=== PATIENT | male | born 1965 | race African-American/Black ===

== ENCOUNTER 2017-09-11 17:09 | Observation (INO) ==
[2017-09-11 17:39] LABS: Bilirubin,Urine Negative (Negative); Blood,Urine Negative (Negative); Clarity,Urine Clear (Clear); Color,Urine Yellow (Yellow); Glucose,Urine (UA) Normal (Normal); Ketones,Urine Negative (Negative); Leukocyte Esterase,Urine Negative (Negative); Nitrite,Urine Negative (Negative); Protein,Urine 30 mg/dL (Neg-Trace); Specific Gravity,Urine 1.025 (1.010-1.025); Urobilinogen,Urine Normal (Normal)
[2017-09-11 17:46] LABS: Mucus,Urine Moderate (Few); Squamous Epithelial Cell,Urine Few per lpf (None-Few); WBC,Urine 0-3 per hpf (0-3)
--- NOTE | 2017-09-11 17:50 | Emergency Department Note ---
Disposition Clinical Impression: Pancreatitis Qualifiers: Chronicity: acute Pancreatitis type: unspecified pancreatitis type Acute pancreatitis complication: no infection or necrosis Qualified Code(s): K85.90 - Acute pancreatitis without necrosis or infection, unspecified Abdominal pain Qualifiers: Abdominal location: right upper quadrant Qualified Code(s): R10.11 - Right upper quadrant pain Disposition: Admitted As Inpatient Condition: Fair Referrals: Alfonso Brush MD [Primary Care Provider] - Forms: ED Satisfaction Letter, Work/School Release Abdominal Pain HPI - General Chief Complaint: ED Abdominal Pain Stated Complaint: PAIN RT UPPER SIDE/BELLY Time Seen by Provider: 09/11/17 17:46 Source: patient Mode of arrival: private vehicle Limitations: no limitations Nursing Notes Reviewed: Yes Vital Signs Reviewed: Yes - History of Present Illness HPI Narrative: Patient was arrived here from the urgent care. She reported he has been having constant right upper quadrant abdominal pain is worst after eating. He had reported to them is having diarrhea at 8-10 stools per day. He was tender in the right upper artery with some voluntary guarding. They stated they did a plain x-ray that was unremarkable. They thought he needed further workup for possible biliary cause, pancreatitis or other acute abdominal process. They recommended he have lab of the CT performed. Patient arrives to the emergency department stating he has had right upper quadrant abdominal pain for about 4 days. This started on Sunday. Pain is sharp and radiates to his back. The pain is better if he lays on his left side. He has some relief from pain in the mornings but as soon as he starts to eat anything the pain gets worse through the day. States he has had decreased oral intake and has mainly been laying around the past couple days. He does report some diarrhea in the mornings which she states is brown or green. He denies any bloody or black stool. Denies nausea or vomiting nor any chest pain or shortness of breath. He has had some chills without fever. He denies any exposures, recent antibiotics or food borne illness concerns. He denies routine use of nonsteroidals or alcohol. Pt Subjective Complaint: abdominal pain Onset (ago): day(s) (4) Consistency: Worsening Location: RUQ Pain Severity: moderate Pain Scale: 6 Quality: stabbing, sharp Radiation: back Migration to: no migration Improves with: nothing Worsens with: eating Associated symptoms: Reports: diarrhea, chills, anorexia. Denies: nausea, vomiting, fever, constipation, dysuria, hematemesis, hematochezia, melena, hematuria, syncope Treatments prior to arrival: none - Related Data Home Medications Medication Instructions Recorded Confirmed No Known Home Drugs 09/11/17 09/11/17 Allergies Allergy/AdvReac Type Severity Reaction Status Date / Time No Known Allergies Allergy Verified 09/11/17 15:59 All systems ED: reviewed and negative except as stated. Abdominal Pain PMH - Past Medical History Medical history: Reports: hypertension, other Male Surgical History: Reports: cholecystectomy, orthopedic, other, vasectomy Psychiatric history: Reports: no psych history - Social History Smoking status: Current every day smoker Alcohol use: Reports: none Drug use: Reports: none Physical Exam - General Limitations: no limitations General appearance: alert, in no apparent distress (Patient landing on his left side.) - Head Head exam: atraumatic, normocephalic, normal inspection - Eye Eye exam: Present: normal appearance, PERRL, EOMI. Absent: scleral icterus, conjunctival injection - ENT ENT exam: normal exam, normal oropharynx, mucous membranes moist - Neck Neck exam: Present: normal inspection, full ROM, trachea midline - Chest Chest inspection: Present: normal inspection, symmetric chest wall rise - Respiratory Respiratory exam: Present: normal lung sounds bilaterally. Absent: respiratory distress, wheezes, prolonged expiratory phase - Cardiovascular Cardiovascular exam: Present: regular rate, normal rhythm, normal heart sounds. Absent: tachycardia - Abdominal Exam Abdominal exam: Present: soft, tenderness, normal bowel sounds. Absent: guarding, rebound, rigidity, psoas sign, obturator sign, heel tap sign, Duran' s sign, Rovsing's sign, tenderness at McBurney's Point Abdominal tenderness: Present: RUQ, moderate - Extremities Exam Extremities exam: Present: normal inspection, full ROM, normal capillary refill. Absent: tenderness, pedal edema, calf tenderness - Expanded Lower Extremity Exam Neurovascular/Tendon exam: Present: normal capillary refill. Absent: motor deficit, sensory deficit, tendon deficit Gait: observed and normal - Back Exam Back exam: Present: normal inspection, full ROM. Absent: tenderness, CVA tenderness (R), CVA tenderness (L) - Neurological Exam Neurological exam: Present: alert, oriented X3 - Psychiatric Psychiatric exam: Present: normal affect, normal mood - Skin Skin exam: Present: warm, dry, intact, normal color. Absent: diaphoresis, pallor Course Course Narrative: Lab and imaging results are discussed with the patient and family present. Given the patient's pain, severe exacerbation pain with oral intake and CT findings of pancreatitis I believe IV fluids, bowel rest and IV pain medicine would be indicated. A page has been placed to Dr. Rasmussen to help coordinate inpatient care. Vital Signs Temperature 97.6 F 09/11/17 17:12 Pulse Rate 88 09/11/17 17:12 Respiratory Rate 18 09/11/17 17:12 Blood Pressure 187/118 09/11/17 17:12 O2 Sat by Pulse Oximetry 97 09/11/17 17:12 Temperature 97.6 F 09/11/17 17:12 Pulse Rate 88 09/11/17 17:12 Respiratory Rate 18 09/11/17 17:12 Blood Pressure 187/118 09/11/17 17:12 O2 Sat by Pulse Oximetry 97 09/11/17 17:12 Oxygen Delivery Oxygen Delivery Room Air Abdominal Pain - Differential Diagnosis Differential Diagnosis: Likely: abdominal pain non-specific, acute appendicitis , calculus of kidney, diverticulitis, pancreatitis - Medical Records Medical records reviewed: Yes I reviewed the patient's medical records. XR/XR acute abdominal series IMPRESSION: Air-fluid levels within the large bowel, suggesting fluid-filled large bowel with possible ileus, possibly in the setting of gastroenteritis. Consider further evaluation with CT of the abdomen pelvis. D/ / Edgar Dan MD / Edgar Dan MD - Lab Data Lab results reviewed: Yes I reviewed the patient's lab results. Result diagrams: 09/11/17 17:59 09/11/17 17:59 Lab Results 09/11/17 09/11/17 09/11/17 Range/Units 17:30 17:59 17:59 WBC 8.0 (4.3-11.1) K/mcL RBC 5.45 (4.19-5.50) M/mcL Hgb 16.6 (12.9-16.9) g/dL Hct 47.1 (37.5-50.1) % MCV 86.4 (83.0-100.0) fL MCH 30.5 (28.0-33.3) pg MCHC 35.2 (31.6-35.5) g/dL RDW 11.9 (11.5-14.5) % Plt Count 287 (140-400) K/mcL MPV 8.9 L (9.4-12.4) fL Immature Gran % 0.2 (0-4) % Seg Neutrophils % 55.7 % Lymphocytes % 31.8 % Monocytes % 10.6 % Eosinophils % 1.2 % Basophils % 0.5 % Neutrophils # 4.5 (1.6-8.9) K/mcL Lymphocytes # 2.6 (0.6-4.6) K/mcL Monocytes # 0.9 (0.0-1.3) K/mcL Eosinophils # 0.1 (0.0-0.6) K/mcL Basophils # 0.0 (0.0-0.2) K/mcL Sodium 138 (136-145) mEq/L Potassium 3.9 (3.5-4.5) mEq/L Chloride 106 (98-109) mEq/L Carbon Dioxide 23 (19-29) mEq/L BUN 12 (8-26) mg/dL Creatinine 0.81 (0.72-1.25) mg/dL Est GFR ( Amer) > 60 (> 60) Est GFR (Non-Af Amer) > 60 (> 60) BUN/Creatinine Ratio 15 (6-26) Glucose 111 H (70-99) mg/dL Calculated Osmolality 286 (280-300) Calcium 9.8 (8.6-10.8) mg/dL Total Bilirubin 0.4 (0.2-1.2) mg/dL Direct Bilirubin 0.2 (0.0-0.5) mg/dL Indirect Bilirubin 0.2 (0.0-1.2) mg/dL AST 20 (5-34) Units/L ALT 36 (0-55) Units/L Alkaline Phosphatase 83 (38-126) Units/L Serum Total Protein 7.5 (6.0-8.3) g/dL Albumin 3.8 (3.5-5.0) g/dL Globulin 3.7 H (2.4-3.5) g/dL Albumin/Globulin Ratio 1.0 L (1.1-2.2) Amylase 42 (25-125) Units/L Lipase 24 (8-78) Units/L Urine Color Yellow (Yellow) Urine Clarity Clear (Clear) Urine pH 5.0 (5.0-8.0) pH Units Ur Specific [place] 1.025 (1.010-1.025) Urine Protein 30 H (Neg-Trace) mg/dL Urine Glucose (UA) Normal (Normal) mg/dL Urine Ketones Negative (Negative) mg/dL Urine Blood Negative (Negative) Urine Nitrite Negative (Negative) Urine Bilirubin Negative (Negative) Urine Urobilinogen Normal (Normal) mg/dL Ur Leukocyte Esterase Negative (Negative) Urine Microscopic WBC 0-3 (0-3) per hpf Ur Squamous Epith Cells Few (None-Few) per lpf Urine Mucus Moderate H (Few) Ur Culture Indicated? NO (NO) - Radiology Data Radiology results reviewed: Yes I reviewed the patient's radiology results. It is performed of the abdomen and pelvis without IV or oral contrast. The patient's other lungs appear free of infiltrates, effusion or mass. The liver and spleen appear normal. The gallbladder surgically absent. The patient has inflammation around the head of the pancreas consistent with pancreatitis. The kidneys without stone or obstruction. Bowel is without obstruction, perforation or inflammation. The appendix is well visualized and is normal. No other acute abnormality is seen. This is on my interpretation. Impressions Abdomen/Pelvis CT 09/11/17 17:50 IMPRESSION: 1. Acute pancreatitis predominatelty involving the pancreatic head. 2. Patchy areas of low-attenuation throughout the right hepatic lobe likely areas of focal fatty change. 3. Although the bladder is not well distended, there is diffuse circumferential bladder wall thickening, which is nonspecific but could be related to bladder outlet obstruction or cystitis. D/ / 09/11/2017 18:23:30 Amanda Saenz MD / massiel Interpreting Provider: Amanda Saenz MD
[2017-09-11 18:08] LABS: Basophils % 0.5 %; Eosinophils # 0.1 K/mcL (0.0-0.6); Eosinophils % 1.2 %; Hematocrit 47.1 % (37.5-50.1); Hemoglobin 16.6 g/dL (12.9-16.9); Immature Granulocytes % 0.2 % (0-4); Lymphocytes # 2.6 K/mcL (0.6-4.6); Lymphocytes % 31.8 %; Mean Corpuscular HGB Conc 35.2 g/dL (31.6-35.5); Mean Corpuscular Hemoglobin 30.5 pg (28.0-33.3); Mean Corpuscular Volume 86.4 fL (83.0-100.0); Mean Platelet Volume 8.9 fL (9.4-12.4); Monocytes # 0.9 K/mcL (0.0-1.3); Monocytes % 10.6 %; Neutrophils # 4.5 K/mcL (1.6-8.9); Platelet Count 287 K/mcL (140-400); Red Blood Count 5.45 M/mcL (4.19-5.50); Red Cell Distribution Width 11.9 % (11.5-14.5); Segmented Neutrophils % 55.7 %
[2017-09-11 18:27] LABS: Alanine Aminotransferase 36 Units/L (0-55); Albumin 3.8 g/dL (3.5-5.0); Alkaline Phosphatase 83 Units/L (38-126); Amylase 42 Units/L (25-125); Aspartate Amino Transferase 20 Units/L (5-34); BUN/Creatinine Ratio 15 (6-26); Bilirubin,Direct 0.2 mg/dL (0.0-0.5); Bilirubin,Indirect 0.2 mg/dL (0.0-1.2); Bilirubin,Total 0.4 mg/dL (0.2-1.2); Blood Urea Nitrogen 12 mg/dL (8-26); Calcium 9.8 mg/dL (8.6-10.8); Carbon Dioxide 23 mEq/L (19-29); Chloride 106 mEq/L (98-109); Globulin 3.7 g/dL (2.4-3.5); Glucose 111 mg/dL (70-99); Lipase 24 Units/L (8-78); Osmolality,Calculated 286 (280-300); Potassium 3.9 mEq/L (3.5-4.5); Sodium 138 mEq/L (136-145); Total Protein 7.5 g/dL (6.0-8.3); eGFR For African Americans > 60 (> 60); eGFR For Non-African Americans > 60 (> 60)
[2017-09-11] MEDS ORDERED: 0.9 % Sodium Chloride 1,000 ML IVC ONE (18:32)
[2017-09-11] MEDS ORDERED: Ondansetron 4 MG/2 ML VIAL IVP ONE (18:32)
[2017-09-11] MEDS ORDERED: *HR* HYDROmorphone (PF) 1 MG/ML SYRINGE IVP ONE (18:32)
[2017-09-11] MEDS ORDERED: 0.9 % Sodium Chloride 1,000 ML IVC SCH ×2 (18:45→20:57)
[2017-09-11] MEDS ORDERED: Ondansetron 4 MG/2 ML VIAL IVP PRN (20:57)
[2017-09-11] MEDS ORDERED: *HR* HYDROmorphone (PF) 1 MG/ML SYRINGE IVP PRN (20:57)
[2017-09-11] MEDS ORDERED: Naloxone 0.4 MG/ML INJ IVP PRN (20:57)
[2017-09-12 06:22] LABS: Chol/HDL Ratio 4.1 (0-4.9)
[2017-09-12 06:33] VITALS: BP 161/93
[2017-09-12 07:00] LABS: Amylase 74 Units/L (25-125); Lipase 53 Units/L (8-78)
--- NOTE | 2017-09-12 10:16 | Internal Med History&Physical ---
Date of Encounter: 09/12/17 Time of Encounter: 09:40 Assessment and Plan (1) Abdominal pain Current visit: Yes Status: Acute Presume pancreatitis based on CT findings. Normal amylase and lipase noted in emergency room. He is clinically improved and feels stable for discharge home. Qualifiers: Abdominal location: right upper quadrant Qualified Code(s): R10.11 - Right upper quadrant pain (2) Hypertension Current visit: Yes Status: Chronic Start him on diltiazem ER. He will follow with Dr. Brush. Qualifiers: Hypertension type: essential hypertension Qualified Code(s): I10 - Essential (primary) hypertension Internal Medicine - H&P: HPI Chief complaint: Diarrhea and abdominal pain Admitted From: Emergency Dept Plans for Post Hospital Care: Home History of present illness: Mr. Parker is a 51 year old male who came to emergency room stating he had onset of abdominal discomfort on September 07. He developed diarrhea on September 09. There was no nausea or vomiting. He reports the abdominal pain started in his right upper abdominal area and radiated across to his mid epigastric region. Seemed to worsen after eating. He had no melena or hematochezia. When he did not improve he came to emergency room and was found to have evidence of pancreatitis on abdominal/pelvic CT. His lipase however was normal. He was admitted to [facility] floor for ongoing care needs. He states he feels improved at the present time and wishes to be discharged home. He denies previous similar episodes of pancreatitis. He had cholecystectomy in 2009. He does not have known hyperlipidemia. He does not drink alcohol. He has no known disorder of his liver or exocrine pancreas otherwise. Past Med Surg Social Fam HX - Past Medical History Medical history: hypertension, other Psychiatric history: no psych history - Social History Smoking Status: Current every day smoker Packs per day: 1 Smokeless Tobacco Status: No Alcohol use: none Drug use: none - Family History Father Hx Family Cancer: Yes (pancreatic) Mother Hx Family Cancer: Yes (lymph nodes) Internal Medicine - H&P: Meds No Known Home Drugs 09/11/17 [History] 3 Allergy/AdvReac Type Severity Reaction Status Date / Time No Known Allergies Allergy Verified 09/11/17 15:59 All Systems PM: A 10-system review of systems was performed and is negative for pertinent findings except as documented above in the HPI. Review of systems: Gen.: He states his weight has been stable past few months Cardiovascular: Has history of hypertension but states he has not taken medication for several months. He has not followed with his PCP Dr. Brush in over a year. He denies SD heart failure angina DVT or pulmonary embolus Respiratory: He has smoked since age 18 up to 2 packs per day. He denies known chronic lung disease GI: As per history of present illness : He denies hematuria dysuria or kidney stones Neurologic: He denies large distribution strokes or seizures. Endocrine: He denies diabetes or thyroid disease or hyperlipidemia Hematology/oncology: Denies blood disorders cancers or anemia Psychiatric: He denies anxiety depression or other mental health issues [place] skeletal: He denies arthritis gout or other bone joint or muscle disorders. - Constitutional Vitals: Temp Pulse Resp BP Pulse Ox 98.3 F 78 16 161/93 93 09/12/17 06:32 09/12/17 06:32 09/12/17 06:32 09/12/17 06:32 09/12/17 06:32 Exam: Gen.: He is a well-developed well-nourished male who appears in no severe distress HEENT: Head is atraumatic and normocephalic. Eyes: EOMI. There is no scleral icterus. Mouth: Mucosa is moist. Neck: Supple and nontender. There is no thyromegaly or adenopathy noted. Heart: Regular without murmurs gallops or ectopics Lungs: No wheezes or crackles are heard. Abdomen: Bowel sounds are diminished. The abdomen is nontender to palpation. No masses or guarding noted. Extremities: There is no cyanosis edema or clubbing noted. Dorsalis pedis and posterior tibial pulses are trace to 1+ palpable bilaterally. Neurologic: Mental status: He is talkative and a good historian. Cranial nerves : Smile is symmetric. Forehead wrinkles bilaterally. Tongue protrudes midline. EOMI. Motor: There is no pronator drift. Cerebellar: Finger to nose is intact bilaterally. Skin: Warm and dry Internal Med - H&P Results - Labs CBC & Chem 7: 09/11/17 17:59 09/11/17 17:59
--- NOTE | 2017-09-12 10:33 | Discharge Summary ---
Date of Encounter: 09/12/17 Time of Encounter: 09:40 - Discharge Diagnosis (1) Abdominal pain Priority: Primary Status: Acute Qualifiers: Abdominal location: right upper quadrant Qualified Code(s): R10.11 - Right upper quadrant pain (2) Hypertension Priority: Secondary Status: Chronic Qualifiers: Hypertension type: essential hypertension Qualified Code(s): I10 - Essential (primary) hypertension - Discharge Medications Prescriptions: Diltiazem HCl [Diltiazem ER] 240 mg PO DAILY #30 cap.er.deg Home Medications: Diltiazem HCl [Diltiazem ER] 240 mg PO DAILY #30 cap.er.deg 09/12/17 [Rx] Allergies/Adverse Reactions: 3 Allergy/AdvReac Type Severity Reaction Status Date / Time No Known Allergies Allergy Verified 09/11/17 15:59 Date of admission: 09/11/17 19:25 Primary care physician: Alfonso Brush MD - Patient Status Disposition: Home, Self-Care Condition: Fair Overall status at discharge: patient is progressing back to baseline - Discharge Instructions Follow Up With: Alfonso Brush MD [Primary Care Provider] - 1 week - Diet and Activity Activity: resume usual activities as tolerated Diet: advance to your usual diet Hospital course: Mr. Parker is a 51 year old male who came to emergency room stating he had onset of abdominal discomfort on September 07. He developed diarrhea on September 09. There was no nausea or vomiting. He reports the abdominal pain started in his right upper abdominal area and radiated across to his mid epigastric region. Seemed to worsen after eating. He had no melena or hematochezia. When he did not improve he came to emergency room and was found to have evidence of pancreatitis on abdominal/pelvic CT. His lipase however was normal. He was [facility] to [facility] for [facility] care needs. Initial orders were written by the emergency room physician. I saw him on September 12 and performed a history physical and discharge. By the time I saw him he stated his abdominal pain had essentially resolved. He had tolerated adequate amounts of food and fluid intake. He wished to be discharged home which I felt was reasonable. He will follow with his PCP Dr. Brush within 1 week. His blood pressure was elevated during hospital stay. He will be started on diltiazem ER [address] Brush can adjust medications as needed. I encouraged him to become a nonsmoker. - Time Spent with Patient Total time spent providing and/or coordinating discharge services: - Constitutional Vitals: Temp Pulse Resp BP Pulse Ox 98.3 F 78 16 161/93 93 09/12/17 06:32 09/12/17 06:32 09/12/17 06:32 09/12/17 06:32 09/12/17 06:32
== END 2017-09-12 11:39 | disposition home or self-care (01) ==
LOC: INPPIK 17:09 → EMEROOPIK 17:09 → INPPIK 20:53
PROVIDERS: ADMIT Internal Medicine; ATTEND Internal Medicine